=== PATIENT | male | born 1995 | race Two or more races ===

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

== ENCOUNTER → 2017-05-04 | Outpatient (CLI) | payer MEDICAID ==
[~2017-05-04] MED LIST: GADOBUTROL 10 ML VIAL IVP ONE
== END ==
LOC: FIMAGING 13:30
PROVIDERS: ATTEND Psychiatry & Neurology Neurology
DX: R20.2 Paresthesia of skin (principal); M50.20 Other cervical disc displacement, unspecified cervical region
CPT/HCPCS: A9585